=== PATIENT | male | born 1950 | race Hispanic/Latino ===

== ENCOUNTER 2018-03-21 08:07 | Day surgery (SDC) | payer OTHER ==
[~2018-03-21] VITALS: Ht 180.3 cm; Wt 100.3 kg
[2018-03-21] VITALS (7 sets, daily range): BP systolic 101–140; BP diastolic 59–82
[~2018-03-21 08:07] MED LIST: SODIUM CHLORIDE 0.9% 1000ML 1,000 ML IV ONE
[2018-03-21] MEDS ORDERED: VITAD50000 PO (08:44)
[2018-03-21] MEDS ORDERED: ATOR40TA71 PO (08:44)
[2018-03-21] MEDS ORDERED: ASPI-555 PO (08:44)
== END 2018-03-21 09:55 | disposition home or self-care (01) ==
LOC: ENDO 08:07 → DAH 08:07 → ENDO 09:55
PROVIDERS: ATTEND Internal Medicine
DX: K29.50 Unspecified chronic gastritis without bleeding (principal); K80.20 Calculus of gallbladder without cholecystitis without obstruction; K31.89 Other diseases of stomach and duodenum; E78.5 Hyperlipidemia, unspecified; Z79.899 Other long term (current) drug therapy; Z86.010 Personal history of colon polyps; E66.9 Obesity, unspecified
CPT/HCPCS: 43237; 43239; 88305; A4606; J7030; 43231